=== PATIENT | female | born 2000 ===

== ENCOUNTER 2021-04-02 09:15 | Outpatient (RCR) | payer BC, SELFPAY ==
[2021-03-09 14:40] VITALS: BMI 20.2
--- NOTE | 2021-03-09 15:14 | PC.ADMIT ---
Patient is a 21 year old female who was referred to [facility] [place] [facility] by her prescriber Salma Linares APRN d/t increased depression and anxiety sxs. Denied SI. Patient reports in January she had an accidental overdose on 2 tabs of LSD, which she tried for the first time, mixed with ETOH and her prescription medications. Patient reports she went to [facility]. Stated she does not remember much of the incident and the 2 days afterwards. Patient reports she was released from [facility] ER the same day she was admitted. Patient reports financial stresses and job stresses. 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 Patient is taking time off from work to work on her mental health. Patient is alert and oriented x4. Presents with depressed mood, anxious affect. Denied SI. Asked patient who could she contact if feeling unsafe and she stated she therapist or friends. Patient gave verbal permission to email her a copy of her safety plan. Patient medications reconciled with patient and patient's pharmacy. Patient reports taking medications as prescribed.
--- NOTE | 2021-03-09 16:58 | PC.NURSE ---
Case opened in treatment team
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
--- NOTE | 2021-03-20 11:09 | P.PNPSP_ITS ---
Subjective Subjective Date of Service: 03/20/21 Reason For Visit: F31.60, F90.9, F41.1 Guardianship: No Medical Problems Affecting Mental Status: No Interim History: Katie reports feeling pretty well today. Reports that the depression comes and goes, more like situational, more like episodes rather than constant. Describes anxiety as similar to depression. Reports that she is not ?crazy anxious ?, but more anxious in episodes, situational. Denies any thought of harm to self or others, no safety concerns. Is requesting refill of Adderall XR 10 mg. Medication Compliance: Yes Side effects from medications: No Attending Groups: Yes Review of Systems Acute medical concerns: No Medical Review of Systems: unchanged Review of Systems Review of Systems Yes all other systems are reviewed and are negative Mental Status Exam Mental Status Exam Narrative: Well-developed, well-nourished female, in NAD. The alert and oriented x4. Id eye contact good. No involuntary movements noted, motor activity calm, posture within normal limits. Patient was common cooperative throughout encounter. Speech was fluent and unimpaired. Patient was fully attentive. Mood described as ?pretty well?, states that depression comes and goes, more situational. Affect is stable, no overt anxiety or depressive symptoms noted. Thought process linear, goal directed. No loose associations noted. Thought content linear, future oriented. And no evidence of any type of delusional thoughts or hallucinations noted nor reported. Patient denies any thought of harm to self or others. 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 Judgment and insight continue fair but improved. Ambulation not observed. Diagnostics Vital Signs (24Hr): Body Mass Index 20.2 Assessment & Plan Assessment & Plan (1) Bipolar II disorder: Status: Acute Code(s): F31.81 - Bipolar II disorder Assessment and Plan: Patient reports depression is not constant, but more coming and going, describes it as situational. Overall feels it is improving. Patient denies any type of thought of harm to self or others, no safety concerns. (2) Generalized anxiety disorder: Status: Acute Code(s): F41.1 - Generalized anxiety disorder Assessment and Plan: Patient reports anxiety is somewhat improved, describes it as more situational rather than constant worry or feeling nervous. (3) ADHD: Status: Acute Code(s): F90.9 - Attention-deficit hyperactivity disorder, unspecified type Assessment and Plan: Patient reports feeling stable regarding attention. Requests refill for Adderall. [facility] Pat Search shows script was filled in late January, with scripts over past several years constant, with Adderall XR 10 mg daily. No evidence of any type of abuse of medication observed during encounter. Assessment and Plan: 1. Refill for Adderall XR 10mg sent to pharmacy. Outpatient provider notified. 2. Continue all other medications as prescribed. 3. Follow-up with patient as per protocol. Patient educated on: diagnosis, medication risk/benefits and therapeutic strategies Informed Consent: understands Reason for contiued partial hosp. stay Substantial Risk for: inability to function and med/psych decompensation Certification I certify that partial hospital treatment is medically necessary due to the symptoms and problems resulting from the patient's mental illness and the failure to treat the patient at the partial hospital level of care would likely result in the patient requiring inpatient psychiatric care which could not be prevented at a less intensive level of care. Greater than 50% of the session was spent on counseling and/or coordination of care Discharge Plan Discharge Attending provider: William Corona Primary Care Provider: Hamzah Pinedo Medications: New dextroamphetamine-amphetamine [Adderall XR] 10 mg capsule,extended release 24hr 10 mg PO DAILY Qty: 30 RF: 0 Discontinued dextroamphetamine-amphetamine [Adderall XR] 10 mg Capsule,Extended Release 24hr 10 mg PO DAILY RF: 0 No Action quetiapine [Seroquel] 25 mg Tablet 25 - 50 mg PO BEDTIME PRN (Reason: Sleep) RF: 0 spironolactone 100 mg Tablet 100 mg PO DAILY RF: 0 sertraline [Zoloft] 25 mg Tablet 12.5 mg PO DAILY RF: 0 lamotrigine [Lamictal] 100 mg Tablet 200 mg PO DAILY RF: 0 Referrals: Hamzah Pinedo MD [Primary Care Provider] - 1 Week Telehealth Telehealth Location of provider rendering services: practice address Location of patient: address on file Patient Identification confirmed using: Name, : Yes Telehealth method: video Patient verbally consented to treatment: Yes Patient verbally consented to billing insurance company: Yes Patient informed of any privacy concerns related to visit: Yes Time spent with patient (mins): 15
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
--- NOTE | 2021-03-25 13:55 | PC.NURSE ---
I called and spoke with pt after staff informed me that she is struggling. She was quite tearful and reported continued thoughts about the possibility that her recently ex-boyfriend might have been cheating. She reported very poor sleep last night due to the same. She reported crying all evening last night and into the night about this. She spoke about wanting answers from her ex, but fear of what the answer might be, and stated it feels like I'm crazy for thinking he might have cheated. Pt remained tearful but was open to a discussion on coping and getting through the day. She reported SI last night, but not now. She reported plans to have a supportive friend over, and we discussed possible distracting activity to help her get into ibanez mind in able to more clearly evaluate the situation later. I also gave pt the number for [facility] crisis and the suicide prevention line, which she said she will utilize if she starts feelign unsafe.
--- NOTE | 2021-03-25 14:19 | PC.NURSE ---
Patient called to say that she would not be attending the last group as she stated she was too upset at this time. She was tearful and talked about her ex boyfriend whom she recently found out may have been cheating on her. Patient denied any safety issues, denied SI. Has the crisis number if needed. Plans on calling a friend who is supportive to spend some time with. Will not be in the program on 03/25/21 as she has a prescriber appointment and she is worried that insurance will not pay for her to attend [facility] and the appointment. Patient plans on returning to the program on Tuesday.
--- NOTE | 2021-03-27 13:08 | P.PNPSP_ITS ---
Subjective Subjective Date of Service: 03/27/21 Reason For Visit: F31.60, F90.9, F41.1 Guardianship: No Medical Problems Affecting Mental Status: No Interim History: Katie reports feeling less anxious today. States that she feels safe, and that her medications are working fairly well. She says that she has had recent dose increases by her outpatient provider this week, including an increase of seroquel to 100mg at bedtime, and lamictal was changed to 50mg in the morning, with 200mg at night. She feels that the groups are helping her gain and practice new ways to cope with life's stressors, and feels well. Medication Compliance: Yes Side effects from medications: No Attending Groups: Yes Review of Systems Acute medical concerns: No Medical Review of Systems: unchanged Review of Systems Review of Systems Yes all other systems are reviewed and are negative Constitutional: Reports no additional constitutional complaints Eyes: Reports no additional eye complaints Reports Normal hearing present Reports Normal hearing present Mental Status Exam Mental Status Exam Narrative: Well due fell left, well-nourished female, in NAD. Fully alert and oriented x4. Good eye contact. Was sitting upright, fully participant during encounter. Describes mood as anxious but improving. Affect congruent. No lability or constriction noted. No evidence of any type of hallucinations or delusional thought observed or reported. Denies thoughts of SI/HI at this time. Patient Appearance: Well Grooomed and Appropriate Patient Orientation: Person, Place, Time and Situation Level of Consciousness: Awake, Appropriate and Alert Patient Behavior: Appropriate, Cooperative and Good Eye Contact Mood Description: Calm, Appropriate and Anxious (somewhat anxious. ) Affect Description: Appropriate and Anxious Patient Cognition Impaired: No Ability to Follow Directions: Excellent Speech Pattern: Clear, Appropriate, Spontaneous Speech and Coherent Memory Description: Intact Hallucinations: None Delusions: Not Present Thought Process: Intact, Goal Oriented and Linear Thought Content: positive for Goal Oriented, positive for Linear and positive for Logical Depressive Symptoms: Increased Anxiety Judgement: Fair Diagnostics Vital Signs (24Hr): Body Mass Index 20.2 Assessment & Plan Assessment & Plan (1) Bipolar II disorder: Status: Acute Code(s): F31.81 - Bipolar II disorder Assessment and Plan: Patient presents with fairly stable mood. Lamictal was increased by outpatient provider this week, with a total daily dose increased from 200 mg daily to 250 mg in split dosing of 50mg in am, 200mg at night. Patient denies any type of side effects from medications at this time. Denies any thoughts of harm to self or others, no safety concerns at this time. (2) Generalized anxiety disorder: Status: Acute Code(s): F41.1 - Generalized anxiety disorder Assessment and Plan: Patient reports she is still experiencing some anxiety although it is improved. Mood stabilizers Lamictal and Seroquel were increased this week by outpatient provider. Seroquel dose is now 100 mg at bedtime. (3) ADHD: Status: Acute Code(s): F90.9 - Attention-deficit hyperactivity disorder, unspecified type Assessment and Plan: Patient continues with Adderall XR 10mg daily as prescribed, no concerns regarding attention, staying on task, or any concerns with organization at this time. Patient reports this dose of Adderall is working well. Assessment and Plan: 1. Continue with current medications as prescribed. Patient does not require any refills at this time. 2. Follow-up as per protocol. Patient educated on: diagnosis, medication risk/benefits and therapeutic strategies Informed Consent: understands Reason for contiued partial hosp. stay Substantial Risk for: inability to function and med/psych decompensation Certification I certify that partial hospital treatment is medically necessary due to the symptoms and problems resulting from the patient's mental illness and the fail ure to treat the patient at the partial hospital level of care would likely result in the patient requiring inpatient psychiatric care which could not be prevented at a less intensive level of care. Greater than 50% of the session was spent on counseling and/or coordination of care Discharge Plan Discharge Attending provider: William Corona Primary Care Provider: Hamzah Pinedo Medications: New dextroamphetamine-amphetamine [Adderall XR] 10 mg capsule,extended release 24hr 10 mg PO DAILY Qty: 30 RF: 0 Discontinued dextroamphetamine-amphetamine [Adderall XR] 10 mg Capsule,Extended Release 24hr 10 mg PO DAILY RF: 0 No Action quetiapine [Seroquel] 25 mg Tablet 25 - 50 mg PO BEDTIME PRN (Reason: Sleep) RF: 0 spironolactone 100 mg Tablet 100 mg PO DAILY RF: 0 sertraline [Zoloft] 25 mg Tablet 12.5 mg PO DAILY RF: 0 lamotrigine [Lamictal] 100 mg Tablet 200 mg PO DAILY RF: 0 Referrals: Hamzah Pinedo MD [Primary Care Provider] - 1 Week Telehealth Telehealth Location of provider rendering services: practice address Location of patient: address on file Patient Identification confirmed using: Name, : Yes Telehealth method: video Patient verbally consented to treatment: Yes Patient verbally consented to billing insurance company: Yes Patient informed of any privacy concerns related to visit: Yes Time spent with patient (mins): 15
--- NOTE | 2021-03-27 13:20 | PC.NURSE ---
I called and LM for pt letting her know that she can stay beyond Tuesday03/31/21, the tentative discharge day we discussed, as she has been struggling emotionally and has been approved for more time from insurance.
--- NOTE | 2021-04-02 11:02 | HO.PHPPROGNO ---
Subjective Subjective Date of Service: 04/02/21 Reason For Visit: F31.60, F90.9, F41.1 Guardianship: No Medical Problems Affecting Mental Status: No Interim History: Darwin reports that she is feeling pretty good, just a little anxious about this being my last day, and returning to the real world . States that she feels safe, emotionally stable, and ready to discharge. No safety concerns. Asking for a return to work note. Medication Compliance: Yes Side effects from medications: No Attending Groups: Yes Review of Systems Acute medical concerns: No Medical Review of Systems: unchanged Review of Systems Review of Systems Yes all other systems are reviewed and are negative Mental Status Exam Mental Status Exam Narrative: Well developed, well nourished female, in no apparent distress. Well groomed, dressed appropriately for age and situation. A&OX4. Eye contact normal. No involuntary movements, no tics or tremors noted. Motor activity calm, posture within normal limits. Patient presented as common cooperative. Speech was fluent, unimpaired, normal rate and rhythm. Mood described as ?pretty good, although a little anxious ?. Affect mood congruent. Thought process linear, goal directed. Thought content normal, future oriented. No evidence of any type of delusional thoughts or hallucinations, and none reported. No SI, HI. Patient appears to be reliable historian. Judgment and insight intact at this time. Diagnostics Vital Signs (24Hr): Body Mass Index 20.2 Assessment & Plan Assessment & Plan (1) Bipolar II disorder: Status: Acute Code(s): F31.81 - Bipolar II disorder Assessment and Plan: Patient reports stable mood, affect congruent. No evidence of poor concentration, psychomotor agitation or retardation, and only a, guilt, or any type of suicidality noted. Client reports that she feels stable for discharge from [facility] and plans to return to work on TuesdayApril 06. She is requesting a return to work note. She reports feeling stable on current medication regimen. (2) Generalized anxiety disorder: Status: Acute Code(s): F41.1 - Generalized anxiety disorder Assessment and Plan: Client did express some anxiety, although she feels it is just about leaving [facility] and returning to her job. She states that she feels ready. Denies any further concerns at this time. No safety concerns. Assessment and Plan: 1. Will follow up with outpatient provider going forward, reports feeling stable on current medication regimen. 2. Will provide a return to work note. 3. Patient stable for discharge from [facility]. Patient educated on: diagnosis, medication risk/benefits and therapeutic strategies Informed Consent: understands Reason for contiued partial hosp. stay Substantial Risk for: stable for discharge Certification I certify that partial hospital treatment is medically necessary due to the symptoms and problems resulting from the patient's mental illness and the failure to treat the patient at the partial hospital level of care would likely result in the patient requiring inpatient psychiatric care which could not be prevented at a less intensive level of care. Greater than 50% of the session was spent on counseling and/or coordination of care Discharge Plan Discharge Attending provider: William Corona Primary Care Provider: Hamzah Pinedo Medications: New dextroamphetamine-amphetamine [Adderall XR] 10 mg capsule,extended release 24hr 10 mg PO DAILY Qty: 30 RF: 0 Discontinued dextroamphetamine-amphetamine [Adderall XR] 10 mg Capsule,Extended Release 24hr 10 mg PO DAILY RF: 0 No Action quetiapine [Seroquel] 25 mg Tablet 25 - 50 mg PO BEDTIME PRN (Reason: Sleep) RF: 0 spironolactone 100 mg Tablet 100 mg PO DAILY RF: 0 sertraline [Zoloft] 25 mg Tablet 12.5 mg PO DAILY RF: 0 lamotrigine [Lamictal] 100 mg Tablet 200 mg PO DAILY RF: 0 Referrals: Hamzah Pinedo MD [Primary Care Provider] - 1 Week Stand Alone Forms: Patient Portal Discharge page Telehealth Telehealth Location of provider rendering services: practice address Location of patient: address on file Patient Identification confirmed using: Name, : Yes Telehealth method: video Patient verbally consented to treatment: Yes Patient verbally consented to billing insurance company: Yes Patient informed of any privacy concerns related to visit: Yes Time spent with patient (mins): 15
--- NOTE | 2021-04-02 12:57 | PC.NURSE ---
Addendum entered by Lavonne Wilson RN 04/02/21 13:00: Patient denied SI, no safety concerns. Patient has a new PCP appointment earliest available on August 21, 2020 AT 1:30 pm. Original Note: Patient scheduled discharge from the [facility] today 04/02/21. Reviewed patient medication with patient. Patient reports taking medications as prescribed. She reports meeting with her prescriber and the following medication changes were made; Lamotrigine 50 mg in the am and 200 mg at HS, Seroquel increased to 100 mg at HS PRN.
--- NOTE | 2021-04-02 15:57 | PC.NURSE ---
I called and left a message for pt's therapist, Charito Rosenberg ([phone]). I informed her of pt's successful discharge from [facility] today.
== END 2021-04-03 08:28 | disposition home or self-care (01) ==
LOC: HO.PHPA 09:15
PROVIDERS: PCP Pediatrics Adolescent Medicine; Visit Provider Psychiatry & Neurology Psychiatry
DX: F31.81 Bipolar II disorder (principal); F41.1 Generalized anxiety disorder; F90.9 Attention-deficit hyperactivity disorder, unspecified type; Z79.899 Other long term (current) drug therapy
CPT/HCPCS: 90853